=== PATIENT | female | born 1985 ===

== ENCOUNTER 2020-02-01 11:34 | Observation (INO) ==
[2020-02-01] MEDS ORDERED: guaiFENesin/DM ER 600-30 MG TABLET PO PRN (13:54)
[2020-02-01] MEDS ORDERED: DOCUSATE SODIUM 100 MG CAPSULE PO PRN (13:54)
[2020-02-01] MEDS ORDERED: hydrALAZINE 20 MG/1 ML VIAL IV PRN (13:54)
[2020-02-01] MEDS ORDERED: ONDANSETRON 4 MG/2 ML VIAL IV PRN (13:54)
[2020-02-01] MEDS ORDERED: GLUCAGON 1 MG VIAL IM PRN (13:54)
[2020-02-01] MEDS ORDERED: DEXTROSE 10% 250 ML BAG IV PRN (13:54)
[2020-02-01] MEDS ORDERED: ALPRAZolam 0.5 MG TABLET PO PRN (14:50)
[2020-02-01 16:14] LABS: Hematocrit 41.3 VOL% (35.7-47.0); Hemoglobin 13.1 GM/DL (12.0-16.0); Immature Granulocytes % 0.2 %; Immature Granulocytes Absolute 0.01 #; Lymphocytes # 1.6 10*3/uL (1.4-4.0); Lymphocytes % 38.7 % (21.3-54.2); Mean Corpuscular HGB Conc 31.7 GM/DL (32-36); Mean Corpuscular Volume 85.5 FL (87-102); Mean Platelet Volume 10.2 FL (9.6-12.0); Monocytes % 3.6 % (1.7-12.7); Neutrophils % 57.5 % (38.7-73.9); Platelet Count 162 T/CUMM (130-400); Red Blood Count 4.83 MC/CUMM (3.8-5.5); Red Cell Distribution Width 13.3 % (9.3-17.3); White Blood Count 4.1 T/CUMM (4-12)
[2020-02-01 16:36] LABS: Albumin 3.1 G/DL (3.4-5.0); Bilirubin,Total 0.5 MG/DL (0.2-1.0); Calcium 7.9 MG/DL (8.5-10.1); Osmolality,Calculated 277.8 MOS/KG (273-304); Total Protein 7.3 G/DL (6.4-8.3)
[2020-02-01 16:43] LABS: Band Neutrophils 1 % (0-10); Lymphocytes 45 % (20-55); Nucleated Red Blood Cells 1 (0-5); Platelet Estimate Adequate; Reactive Lymphocytes 1+; Segmented Neutrophils 50 % (50-85); Total Cells Counted 100
[2020-02-01] MEDS: INSULIN REGULAR 100 UNIT/ML SUBCUT SCH ×2 (16:45→21:22)
[2020-02-01] MEDS ORDERED: HYDROXYCHLOROQUINE 200 MG TABLET PO SCH (21:00)
[2020-02-01] MEDS: ENOXAPARIN 40 MG/0.4 ML SYRINGE SUBCUT SCH (21:15)
[2020-02-01] MEDS: ACETAMINOPHEN 325 MG TABLET PO PRN (21:15)
[2020-02-01] MEDS: ZINC SULFATE 220 MG CAPSULE PO SCH (21:15)
[2020-02-02] MEDS: INSULIN REGULAR 100 UNIT/ML SUBCUT SCH ×4 (07:45→20:56)
[2020-02-02] MEDS: ACETAMINOPHEN 325 MG TABLET PO PRN (09:42)
[2020-02-02 09:51] LABS: Basophils % 0.2 % (0.0-0.8); Hematocrit 43.5 VOL% (35.7-47.0); Hemoglobin 13.9 GM/DL (12.0-16.0); Immature Granulocytes % 0.3 %; Immature Granulocytes Absolute 0.02 #; Lymphocytes # 1.5 10*3/uL (1.4-4.0); Lymphocytes % 22.4 % (21.3-54.2); Mean Corpuscular Volume 84.6 FL (87-102); Mean Platelet Volume 10.5 FL (9.6-12.0); Monocytes % 3.2 % (1.7-12.7); Neutrophils % 73.9 % (38.7-73.9); Platelet Count 198 T/CUMM (130-400); Red Blood Count 5.14 MC/CUMM (3.8-5.5); Red Cell Distribution Width 13.4 % (9.3-17.3); White Blood Count 6.5 T/CUMM (4-12)
[2020-02-02 10:08] LABS: Calcium 8.4 MG/DL (8.5-10.1); Osmolality,Calculated 275.2 MOS/KG (273-304)
[2020-02-02 10:10] LABS: Risk Ratio 4.85
[2020-02-02] MEDS: ENOXAPARIN 40 MG/0.4 ML SYRINGE SUBCUT SCH (20:57)
[2020-02-02] MEDS ORDERED: HYDROXYCHLOROQUINE 200 MG TABLET PO SCH (21:00)
[2020-02-03 04:35] VITALS: BP 105/71
[2020-02-03] MEDS: INSULIN REGULAR 100 UNIT/ML SUBCUT SCH ×2 (08:31→12:27)
[2020-02-03] MEDS: ZINC SULFATE 220 MG CAPSULE PO SCH (09:13)
[2020-02-03 09:31] LABS: Basophils % 0.3 % (0.0-0.8); Eosinophils % 0.3 % (0.00-10.9); Hematocrit 42.3 VOL% (35.7-47.0); Immature Granulocytes % 0.3 %; Immature Granulocytes Absolute 0.01 #; Lymphocytes # 1.7 10*3/uL (1.4-4.0); Lymphocytes % 47.1 % (21.3-54.2); Mean Corpuscular HGB Conc 33.1 GM/DL (32-36); Mean Corpuscular Volume 82.1 FL (87-102); Mean Platelet Volume 10.4 FL (9.6-12.0); Monocytes % 4.4 % (1.7-12.7); Neutrophils % 47.6 % (38.7-73.9); Platelet Count 204 T/CUMM (130-400); Red Blood Count 5.15 MC/CUMM (3.8-5.5); Red Cell Distribution Width 13.3 % (9.3-17.3); White Blood Count 3.7 T/CUMM (4-12)
[2020-02-03 09:48] LABS: Calcium 8.3 MG/DL (8.5-10.1); Osmolality,Calculated 278.8 MOS/KG (273-304)
[2020-02-03 10:02] LABS: Eosinophils 3 % (0-10); Hypochromasia 1+; Lymphocytes 50 % (20-55); Platelet Estimate Adequate; Segmented Neutrophils 40 % (50-85); Total Cells Counted 100
== END 2020-02-03 15:10 | disposition home or self-care (01) ==
LOC: N.2W → SUATTDRO 13:47
PROVIDERS: ADMIT Internal Medicine; ATTEND Family Medicine